=== PATIENT | male | born 1960 | race African-American/Black ===

== ENCOUNTER 2021-06-08 20:37 | Inpatient (IN) | payer MEDICAID ==
[~2021-06-08] VITALS: Ht 180.3 cm; Wt 76.2 kg
[2021-06-08] MEDS ORDERED: ALBUTEROL (0.083%) 2.5MG/3ML NEB HHN STA (21:28)
[2021-06-08] MEDS ORDERED: IPRATROPIUM BROMIDE (0.02%) 0.5MG/2.5ML NEB HHN STA (21:28)
[2021-06-08] MEDS ORDERED: METHYLPREDNISOLONE SOD SUCC 125 MG/2 ML VIAL IV STA (21:28)
[2021-06-08] MEDS ORDERED: LEVOFLOXACIN 500MG PREMIX 100 ML IV ONE (21:30)
[2021-06-08 22:09] LABS: BASOPHILS % 2.2 % (0.0-2.0); EOSINOPHILS % 11.1 % (0.0-5.0); HEMOGLOBIN. 10.1 g/dL (14.0-18.0); LYMPHOCYTES % 45.4 % (20.0-50.0); MEAN CORPUSCULAR HEMOGLOBIN 23.3 pg (28.0-32.0); MEAN CORPUSCULAR VOLUME 74.3 fL (80.0-94.0); MONOCYTES % 8.3 % (2.0-8.0); PLATELET 248 x1000/uL (130-400); RED BLOOD CELL COUNT 4.31 mill/uL (4.7-6.1); RED CELL DISTRIBUTION WIDTH 22.3 % (11.6-14.6)
[2021-06-08 22:20] LABS: ETHANOL BLOOD < 10 mg/dL
[2021-06-08 22:25] LABS: CHLORIDE 110 mEq/L (98-107)
[2021-06-08 22:42] LABS: PLATELET ESTIMATE NORMAL
[2021-06-08] MEDS ORDERED: SODIUM POLYSTYRENE SULFONATE 15 G/60 ML BOT PO ONE (22:45)
[2021-06-08] MEDS ORDERED: FUROSEMIDE 20MG/2ML VIAL IVP ONE (23:00)
[2021-06-08 23:43] LABS: CLARITY URINE CLEAR (CLEAR); COLOR URINE YELLOW (YELLOW); KETONES URINE NEGATIVE (NEGATIVE); LEUKOCYTE ESTERASE URINE NEGATIVE (NEGATIVE); NITRITE URINE NEGATIVE (NEGATIVE); OCCULT BLOOD URINE NEGATIVE (NEGATIVE); PH URINE 6.5 (4.5-8.0); PROTEIN URINE NEGATIVE (NEGATIVE); SPECIFIC GRAVITY URINE 1.025 (1.005-1.030); UROBILINOGEN URINE 0.2 E.U./dL (0.2-1.0)
[2021-06-08 23:51] LABS: *AMPHETAMINES SCREEN URINE PRESUMTIVE POSITIVE (NEGATIVE); *BARBITURATES SCREEN URINE NEGATIVE (NEGATIVE); *BENZODIAZEPINES SCREEN URINE NEGATIVE (NEGATIVE)
[2021-06-08 23:52] LABS: *COCAINE SCREEN URINE NEGATIVE (NEGATIVE); CANNABINOID URINE SCREEN NEGATIVE (NEGATIVE); METHADONE URINE SCREEN NEGATIVE (NEGATIVE); OPIATES URINE SCREEN NEGATIVE (NEGATIVE); PHENCYCLIDINE URINE SCREEN NEGATIVE (NEGATIVE)
[2021-06-09] MEDS ORDERED: ONDANSETRON HCL 4MG/2ML INJ IV PRN (06:15)
[2021-06-09] MEDS ORDERED: DOCUSATE SODIUM 100MG CAPSULE PO PRN (06:15)
[2021-06-09] MEDS ORDERED: IPRATROPIUM/ALBUTEROL 0.5-3(2.5)MG/3ML NEB HHN PRN (06:15)
[2021-06-09] MEDS ORDERED: ACETAMINOPHEN 325MG TABLET PO PRN (06:15)
[2021-06-09] MEDS ORDERED: CLONIDINE 0.1MG TABLET PO PRN (06:15)
[2021-06-09] MEDS ORDERED: HYDROCODONE/ACETAMINOPHEN 5/325MG TABLET PO PRN (06:15)
[2021-06-09] MEDS ORDERED: GUAIFENESIN 200MG/10ML SUGAR FREE UDC PO PRN (06:15)
[2021-06-09] MEDS ORDERED: MAGNESIUM/ALUMINUM HYDROXIDE/SIMETHICONE 30ML UDC PO PRN (06:15)
[2021-06-09] MEDS ORDERED: NALOXONE HCL 0.4MG/ML VIAL IV PRN (06:45)
[2021-06-09 07:09] VITALS: BP 141/69
[2021-06-09 08:00] VITALS: BP 121/66
[2021-06-09] MEDS: AMLODIPINE 10MG TABLET PO SCH (09:28)
[2021-06-09] MEDS: CEFTRIAXONE 1,000 MG in DEXTROSE 5% WATER 50 ML IV SCH (09:28)
[2021-06-09] MEDS: AZITHROMYCIN 500 MG in DEXT 5% WATER 250 ML IV SCH (09:29)
[2021-06-09] MEDS: METHYLPREDNISOLONE SOD SUCC 125 MG/2 ML VIAL IV SCH ×4 (09:29→23:40)
[2021-06-09] MEDS: ENOXAPARIN 40MG/0.4ML SYR SUBCUT SCH (09:29)
[2021-06-09] MEDS ORDERED: HYDR4TAB4 MT (09:47)
[2021-06-09] MEDS ORDERED: GABA-532 MT (09:47)
[2021-06-09] MEDS ORDERED: OXYC-662 MT (09:47)
[2021-06-09] MEDS ORDERED: TAMS-11 PO (09:47)
[2021-06-09] MEDS ORDERED: PHEN50TA PO (09:54)
[2021-06-09] MEDS ORDERED: BICT1TAB PO (09:55)
[2021-06-09 09:58] VITALS: BP 121/68
[2021-06-09] MEDS ORDERED: L25 MT (10:15)
[2021-06-09] MEDS ORDERED: DIAZ10TA MT (10:15)
[2021-06-09 12:00] VITALS: BP 108/69
[2021-06-09 12:03] LABS: CHLORIDE 101 mEq/L (98-107)
[2021-06-09 16:00] VITALS: BP 128/64
[2021-06-09 20:25] VITALS: BP 115/64
[2021-06-10 00:11] VITALS: BP 114/72
[2021-06-10 04:00] VITALS: BP 114/72
[2021-06-10] MEDS: METHYLPREDNISOLONE SOD SUCC 125 MG/2 ML VIAL IV SCH ×4 (06:16→23:27)
[2021-06-10 07:59] LABS: CHLORIDE 101 mEq/L (98-107)
[2021-06-10 08:00] VITALS: BP 105/57
[2021-06-10 08:05] LABS: BASOPHILS % 0.3 % (0.0-2.0); HEMOGLOBIN. 10.3 g/dL (14.0-18.0); MEAN CORPUSCULAR HEMOGLOBIN 23.3 pg (28.0-32.0); MEAN CORPUSCULAR VOLUME 74.3 fL (80.0-94.0); MEAN PLATELET VOLUME 8.2 fl (7.4-10.4); MONOCYTES % 1.5 % (2.0-8.0); NEUTROPHILS % 88.2 % (40.0-76.0); PLATELET 319 x1000/uL (130-400); RED BLOOD CELL COUNT 4.43 mill/uL (4.7-6.1); RED CELL DISTRIBUTION WIDTH 22.2 % (11.6-14.6)
[2021-06-10] MEDS: AZITHROMYCIN 500 MG in DEXT 5% WATER 250 ML IV SCH (08:20)
[2021-06-10] MEDS: AMLODIPINE 10MG TABLET PO SCH (09:00)
[2021-06-10] MEDS: ENOXAPARIN 40MG/0.4ML SYR SUBCUT SCH (10:35)
[2021-06-10] MEDS: CEFTRIAXONE 1,000 MG in DEXTROSE 5% WATER 50 ML IV SCH (10:36)
[2021-06-10 12:00] VITALS: BP 126/52
[2021-06-10] MEDS: GUAIFENESIN 600MG ER TABLET PO SCH ×2 (12:25→21:25)
[2021-06-10 16:00] VITALS: BP 128/72
[2021-06-10 20:00] VITALS: BP 104/58
[2021-06-10] MEDS ORDERED: GUAIFENESIN 600MG ER TABLET PO SCH (21:00)
[2021-06-11] VITALS: BP 111/59
[2021-06-11 04:00] VITALS: BP 116/61
[2021-06-11] MEDS: METHYLPREDNISOLONE SOD SUCC 125 MG/2 ML VIAL IV SCH ×2 (06:00→12:00)
[2021-06-11 08:00] VITALS: BP 121/75
[2021-06-11] MEDS: GUAIFENESIN 600MG ER TABLET PO SCH (08:39)
[2021-06-11] MEDS: AMLODIPINE 10MG TABLET PO SCH (08:40)
[2021-06-11] MEDS: CEFTRIAXONE 1,000 MG in DEXTROSE 5% WATER 50 ML IV SCH (08:41)
[2021-06-11] MEDS: ENOXAPARIN 40MG/0.4ML SYR SUBCUT SCH (08:41)
[2021-06-11] MEDS ORDERED: AZITHROMYCIN 500 MG TABLET PO SCH (09:00)
[2021-06-11 10:17] VITALS: BP 121/75
[2021-06-11 12:00] VITALS: BP 119/73
== END 2021-06-11 16:25 | disposition home or self-care (01) | DRG 140 ==
LOC: ER 20:37 → EDBEDREQ 22:45 → EDBEDREQTM 22:45 → ENRESERV 06-09 00:14 → 7EST 06-09 01:33
PROVIDERS: ADMIT Hospitalist; ATTEND Hospitalist
DX: J44.1 Chronic obstructive pulmonary disease with (acute) exacerbation (principal); J96.91 Respiratory failure, unspecified with hypoxia; E87.2 Acidosis; I50.9 Heart failure, unspecified; I11.0 Hypertensive heart disease with heart failure; E87.5 Hyperkalemia; G40.909 Epilepsy, unspecified, not intractable, without status epilepticus; F19.10 Other psychoactive substance abuse, uncomplicated; F17.210 Nicotine dependence, cigarettes, uncomplicated; D64.9 Anemia, unspecified; Z82.49 Family history of ischemic heart disease and other diseases of the circulatory system
CPT/HCPCS: 36415; 71045; 80048; 80053; 80305; 80320; 81003; 83605; 83880; 84145; 84484; 85025; 93005; 94644; 99291; J0456; J0696; J1650; J1940; J1956; J2405; J2930; J7040; J7060; G0480